=== PATIENT | male | born 1985 | race Caucasian/White ===

== ENCOUNTER 2020-09-04 19:14 | Emergency (ER) | payer BC ==
[~2020-09-04] VITALS: Ht 165.1 cm; Wt 86.2 kg
[2020-09-04 21:02] VITALS: BP 126/80
== END 2020-09-04 21:02 | disposition home or self-care (01) ==
LOC: M.ERS 19:14
DX: S62.396A Other fracture of fifth metacarpal bone, right hand, initial encounter for closed fracture (principal); W22.8XXA Striking against or struck by other objects, initial encounter; Y93.89 Activity, other specified; Y92.89 Other specified places as the place of occurrence of the external cause; Y99.8 Other external cause status